=== PATIENT | male | born 1975 | race Caucasian/White ===

== ENCOUNTER 2018-11-08 20:12 | Emergency (ER) | payer SELFPAY ==
[~2018-11-08] VITALS: Ht 182.9 cm; Wt 104.3 kg
[2018-11-08 20:15] VITALS: BP 130/97
[2018-11-08 22:31] LABS: Basophils # (auto) 0.1 uL; Basophils % (auto) 0.7 % (0.0-2.0); Eosinophils # (auto) 0.3 uL; Eosinophils % (auto) 2.9 % (0.0-7.0); Hemoglobin 14.9 g/dL (13.5-17.5); Lymphocytes # (auto) 2.5 uL; Lymphocytes % (auto) 24.1 % (10.0-50.0); Mean Corpuscular Hemoglobin 31.5 pg (28.0-32.0); Mean Corpuscular Hgb Conc. 35.4 g/dL (32.0-36.0); Mean Corpuscular Volume 88.8 fL (80.0-100.0); Monocytes # (auto) 0.9 uL; Monocytes % (auto) 8.6 % (0.0-12.0); Neutrophils # (auto) 6.5 uL; Neutrophils % (auto) 63.7 % (37.0-80.0); Platelet Count (auto) 224 10^3/uL (140-450); Red Blood Cells 4.73 10^6/uL (4.5-5.90); Red Cell Distribution Width 13.2 % (11.8-14.3); White Blood Cell 10.2 10^3/uL (4.4-10.8)
[2018-11-08 22:44] LABS: Potassium 3.9 mmol/L (3.5-5.1)
[2018-11-08 22:50] LABS: Albumin 4.4 g/dL (3.4-5.0); BUN/Creatinine Ratio 13.4; Calcium 9.5 mg/dL (8.5-10.1)
[2018-11-08 22:54] LABS: Bilirubin, Total 0.4 mg/dL (0.2-1.0); Total Protein 8.8 g/dL (6.4-8.2)
== END 2018-11-09 02:38 | disposition left against medical advice (07) ==
LOC: ER 20:16
DX: R10.9 Unspecified abdominal pain (principal); R06.02 Shortness of breath; Z53.21 Procedure and treatment not carried out due to patient leaving prior to being seen by health care provider
CPT/HCPCS: 36415; 74176; 80053; 85025